=== PATIENT | female | born 1985 | race Caucasian/White ===

== ENCOUNTER → 2016-10-18 | Outpatient (CLI) | payer OTHER ==
--- NOTE | 2016-10-19 13:21 | WWHP ---
CHIEF COMPLAINT: The patient is here for her routine gynecologic exam and mammogram. HPI: This is a 31-year-old G2, P0-2-0-1 with an LMP of 09/26/16. The patient had her ParaGard IUD removed on 10/20/15. She has been actively attempting during the past year without success. The patient is considered high risk because of her obstetrical history including severe preeclampsia at 26 weeks gestation with her first and 7 month still loss with her second . Menses have been regular every 26 to 28 days and are typically lasting approximately 3 days. She states they have gotten shorter after her ParaGard IUD was removed. Past medical history is unremarkable. MEDICATIONS: 1. Multivitamin daily. 2. Iron supplement daily. ALLERGIES: No known drug allergies. PAST SURGICAL HISTORY: in 2004. PAST OB, LEGAL INVESTIGATOR AND FAMILY HISTORIES: Unchanged from the 2014 H&P. SOCIAL HISTORY: She denies tobacco and drug use and has about two alcoholic drinks per week. She has been with her boyfriend since 2006 and does live with him. 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 REVIEW OF SYSTEMS: She has lost 5 pounds over the last year. She denies respiratory, cardiac, or GI problems. PHYSICAL EXAM: Blood pressure 105/67, height 5 feet 3 inches, weight 141 pounds. Temperature 98.5, pulse 70. This is a well developed, well nourished white female who is alert and oriented x3 in no acute distress. HEENT is within normal limits. Neck is supple without mass or thyromegaly. Chest and lungs clear to auscultation. Heart: Regular rate and rhythm. Breasts are without mass or discharge. Axillary exam is negative for adenopathy. Back negative for CVA tenderness. Abdomen is soft, nontender without palpable masses. Pelvic exam: Normal external genitalia. Cervix and vagina appear normal. There is no unusual discharge. There is no cervical motion tenderness. The uterus is mid-position, nongravid size and nontender. There are no palpable adnexal masses or tenderness. Rectovaginal exam is negative for mass or tenderness. Extremities are nontender. IMPRESSION: 1. A 31-year-old female with normal gynecologic exam who is actively attempting for approximately one year. 2. High risk obstetrical history. PLAN: 1. PAP smear was deferred since she had a normal one last year. 2. Self breast examination was discussed. 3. We had a long discussion regarding fertility as well as the most fertile times during her cycles. We have also discussed possible infertility testing and treatment. If she wants to pursue infertility testing and treatment I have recommended that she speak with her insurance company to determine which infertility specialists participate with her insurance. 4. I have also recommended that she follow up with her maternal medicine doctor before she conceives to determine if any other preconception planning is necessary. 5. We have also discussed how increasing age does increase the risk for having a baby with Downs syndrome. 6. She will return in one year and p.r.nBen MCCAULEY
== END | disposition home or self-care (01) ==
LOC: WWCWWP 15:50
PROVIDERS: ATTEND Obstetrics & Gynecology
DX: Z01.419 Encounter for gynecological examination (general) (routine) without abnormal findings (principal)